=== PATIENT | female | born 1980 | race Caucasian/White ===

== ENCOUNTER 2018-12-29 21:18 | Emergency (ER) | payer MEDICAID ==
[2018-12-29 23:53] LABS: ABSOLUTE BASOPHILS # (AUTO) 0.1 10^3/uL (0.0-0.2); ABSOLUTE EOSINOPHILS # (AUTO) 0.1 10^3/uL (0.0-0.6); ABSOLUTE LYMPHOCYTES (AUTO) 2.2 10^3/uL (0.5-4.7); ABSOLUTE MONOCYTES (AUTO) 0.6 10^3/uL (0.1-1.4); ABSOLUTE NEUT (AUTO) 4.3 10^3/uL (1.7-8.2); EOSINOPHILS % (AUTO) 1.3 % (0-6); HEMATOCRIT 40.2 % (36.0-47.0); HEMOGLOBIN 13.5 g/dL (12.0-15.5); LYMPHOCYTES % (AUTO) 30.5 % (13-45); MEAN CORPUSCULAR HEMOGLOBIN 27.9 pg (27.0-33.4); MEAN CORPUSCULAR HGB CONC 33.6 g/dL (32.0-36.0); MEAN CORPUSCULAR VOLUME 83 fl (80-97); MONOCYTES % (AUTO) 7.8 % (3-13); PLATELET COUNT 190 10^3/uL (150-450); RED BLOOD COUNT 4.85 10^6/uL (3.72-5.28); RED CELL DISTRIBUTION WIDTH 13.5 % (11.5-14.0); SEGMENTED NEUTROPHILS % (AUTO) 59.4 % (42-78); TOTAL CELLS COUNTED % (AUTO) 100 %; WHITE BLOOD COUNT 7.2 10^3/uL (4.0-10.5)
[2018-12-30] LABS: APPEARANCE,URINE CLOUDY; BILIRUBIN,URINE NEGATIVE (NEGATIVE); COLOR,URINE RED; GLUCOSE, URINE >=500 mg/dL (NEGATIVE); KETONES,URINE NEGATIVE (NEGATIVE); LEUKOCYTE ESTERASE,URINE NEGATIVE (NEGATIVE); NITRITE,URINE NEGATIVE (NEGATIVE); PROTEIN,URINE 30 mg/dL (NEGATIVE); URINE SPECIFIC GRAVITY 1.033; UROBILINOGEN,URINE NEGATIVE mg/dL (<2.0)
[2018-12-30 00:08] LABS: ALANINE AMINOTRANSFERASE 34 U/L (9-52); ALBUMIN 4.5 g/dL (3.5-5.0); ALKALINE PHOSPHATASE 104 U/L (38-126); ANION GAP 13 (5-19); ASPARTATE AMINO TRANSFERASE 19 U/L (14-36); BILIRUBIN,DIRECT 0.2 mg/dL (0.0-0.4); BILIRUBIN,TOTAL 0.5 mg/dL (0.2-1.3); BLOOD UREA NITROGEN 18 mg/dL (7-20); CALCIUM 9.6 mg/dL (8.4-10.2); CARBON DIOXIDE 23 mmol/L (22-30); CHLORIDE 101 mmol/L (98-107); GLUCOSE 383 mg/dL (75-110); POTASSIUM 4.1 mmol/L (3.6-5.0); SODIUM 137.1 mmol/L (137-145); TOTAL PROTEIN 7.6 g/dL (6.3-8.2)
[2018-12-30] MEDS ORDERED: NORMAL SALINE 1000 ML 1,000 ML IV ONE (00:56)
--- NOTE | 2018-12-30 00:59 | ER Document Report ---
ED General - General Chief Complaint: Vaginal Bleeding Stated Complaint: VAGINAL BLEEDING,CRAMPING Time Seen by Provider: 12/30/18 00:50 Primary Care Provider: SHOAIB PINA MD [ACTIVE STAFF] - Follow up in 3-5 days Notes: Patient is a pleasant 38-year-old female presents with complaint of heavy vaginal bleeding. Patient was diagnosed with a pulmonary embolism in August. She was placed on Xarelto. She says every day since starting the Xarelto she bleeds. She said today has been heavier than normal. She says that she is been passing some clots. She has not had an ultrasound of her uterus. She has no history of fibroids that she is aware of. She has not been rechecked to see if the PE is gone. She said they want to keep her on Xarelto for 6 months due to the PE. She has now been on it for close to 5 months. No fevers. No other complaints at this time. TRAVEL OUTSIDE OF THE [place] IN LAST 30 DAYS: No Past Medical History - Social History Smoking Status: Never Smoker Frequency of alcohol use: None Drug Abuse: None Family History: Reviewed & Not Pertinent Patient has suicidal ideation: No Patient has homicidal ideation: No Endocrine Medical History: Reports: Hx Diabetes Mellitus Type 2 Renal/ Medical History: Denies: Hx Peritoneal Dialysis Past Surgical History: Reports: Hx Tonsillectomy, Hx Tubal Ligation Review of Systems - Review of Systems Notes: My Normal Review Basic REVIEW OF SYSTEMS: CONSTITUTIONAL : Denies fever, chills, or sweats. Denies recent illness. EENT: Denies eye, ear, throat, or mouth pain or symptoms. Denies nasal or sinus congestion. CARDIOVASCULAR: Denies chest pain. RESPIRATORY: Denies cough, cold, or chest congestion. Denies shortness of breath, difficulty breathing, or wheezing. GASTROINTESTINAL: Denies abdominal pain. Denies nausea, vomiting, or diarrhea. GENITOURINARY: Denies difficulty urinating, painful urination, burning, frequency, or blood in urine. FEMALE GENITOURINARY: Heavy vaginal bleeding MUSCULOSKELETAL: Denies neck or back pain or joint pain or swelling. SKIN: Denies rash or skin lesions. HEMATOLOGIC : On Xarelto NEUROLOGICAL: Denies altered mental status or loss of consciousness. ALL OTHER SYSTEMS REVIEWED AND NEGATIVE. Physical Exam - Vital signs Vitals: Temp Pulse Resp BP Pulse Ox 98.2 F 110 H 20 128/69 H 98 12/29/18 21:28 12/29/18 21:28 12/29/18 21:28 12/29/18 21:28 12/29/18 21:28 - Notes Notes: General Appearance: Well nourished, alert, cooperative, no acute distress, no obvious discomfort. Well-appearing. Vitals: reviewed, See vital signs table. Head: no swelling or tenderness to the head Eyes: PERRL, EOMI, Conjuctiva clear Mouth: No decreasd moisture Lungs: No wheezing, No rales, No rhonci, No accessory muscle use, good air exchange bilaterally. Heart: Normal rate, Regular rythm, No murmur, no rub Abdomen: Normal BS, soft, No rigidity, No abdominal tenderness, No guarding, no rebound Genital: Pelvic exam performed with female nurse scoreboard operator Tran Tanner at bedside. Normal external genitalia. Some blood in vaginal vault. No clots. No abnormal appearing intravaginal lesions. Extremities: good pulses in all extremities, no swelling or tenderness in the extremities, no edema. Skin: warm, dry, appropriate color, no rash Neuro: speech clear, oriented x 3, normal affect, responds appropriately to questions. Course - Re-evaluation Re-evalutation: 12/30/18 04:[address] scan shows no evidence of PE. I feel it is safe to hold her Xarelto for at least 5 days in hopes that this will help slow down her vaginal bleeding. Patient is agreeable with this. Informed her that she should still follow-up with her doctor in 5 days to see if he wants to restart taking it again. I encouraged her return to ER immediately if she has worsening bleeding, lightheadedness, dizziness, difficulty breathing, chest pain, or she feels unwell. I will refer her to gynecology for reevaluation and for further options and management of her vaginal bleeding. Patient agrees with plan and will be discharged home. Dictation of this chart was performed using voice recognition software; therefore, there may be some unintended grammatical errors. - Vital Signs Vital signs: Temp Pulse Resp BP Pulse Ox 98.6 F 98 15 111/61 100 12/30/18 03:04 12/30/18 03:04 12/30/18 03:04 12/30/18 03:04 12/30/18 03:04 - Laboratory Result Diagrams: 12/30/18 02:10 12/29/18 23:27 Laboratory results interpreted by me: 12/29/18 12/29/18 23:27 23:27 Glucose 383 H Urine Protein 30 H Urine Glucose (UA) >=500 H Urine Blood LARGE H Discharge - Discharge Clinical Impression: Episode of heavy vaginal bleeding Condition: Good Disposition: HOME, SELF-CARE Additional Instructions: Your CT scan of your lungs showed that there is no longer a visible clot in your lungs. We therefore we will have you hold your Xarelto for the next 5 days to hopefully allow for your vaginal bleeding to stop. Please follow-up with your doctor in 5 days for reevaluation and to discuss whether or not you can continue taking the Xarelto after holding it for 5 days. Please make an appointment to follow-up with the pouncer machine. The pouncer machine recruitment consultant is Dr. Pina. Please call his office to make a close follow-up appointment. Please return to the ER immediately if you have worsening bleeding, lightheadedness, difficulty breathing, chest pain, or if you feel unwell in any way. Forms: Return to Work Referrals: SHOAIB PINA MD [ACTIVE STAFF] - Follow up in 3-5 days
[2018-12-30 02:27] LABS: ABSOLUTE EOSINOPHILS # (AUTO) 0.1 10^3/uL (0.0-0.6); ABSOLUTE MONOCYTES (AUTO) 0.6 10^3/uL (0.1-1.4); ABSOLUTE NEUT (AUTO) 3.8 10^3/uL (1.7-8.2); BASOPHILS % (AUTO) 0.6 % (0-2); EOSINOPHILS % (AUTO) 1.7 % (0-6); HEMATOCRIT 37.4 % (36.0-47.0); HEMOGLOBIN 12.7 g/dL (12.0-15.5); LYMPHOCYTES % (AUTO) 30.9 % (13-45); MEAN CORPUSCULAR HGB CONC 34.1 g/dL (32.0-36.0); MEAN CORPUSCULAR VOLUME 82 fl (80-97); MONOCYTES % (AUTO) 8.9 % (3-13); PLATELET COUNT 170 10^3/uL (150-450); RED BLOOD COUNT 4.55 10^6/uL (3.72-5.28); RED CELL DISTRIBUTION WIDTH 13.2 % (11.5-14.0); SEGMENTED NEUTROPHILS % (AUTO) 57.9 % (42-78); TOTAL CELLS COUNTED % (AUTO) 100 %; WHITE BLOOD COUNT 6.5 10^3/uL (4.0-10.5)
[2018-12-30 03:10] VITALS: BP 111/61
--- NOTE | 2018-12-30 03:15 | RADIOLOGY REPORT (SQ) ---
EXAM DESCRIPTION: CT CHEST ANGIOGRAPHY WITHOUT THEN WITH IV CONTRAST COMPLETED DATE/TME: 12/30/2018 00:56 CLINICAL HISTORY: 38 years, Female, hx of PE COMPARISON: None. TECHNIQUE: Axial images through the chest were performed after the administration of intravenous contrast using a pulmonary embolus protocol. MIPS were performed. This exam was performed according to our departmental dose-optimization program which includes use of Automated Exposure Control, adjustment of the mA and/or kV according to patient size and/or use of iterative reconstruction technique. FINDINGS: No pulmonary embolus is identified. Normal caliber aorta without dissection. No pericardial effusion. No pleural effusion. No focal lung consolidation. No pneumothorax. Patent central airway. Soft tissues are unremarkable. No acute osseous findings. No acute abnormality within the visualized upper abdomen. IMPRESSION: No pulmonary embolus.
--- NOTE | 2018-12-30 04:28 | RADIOLOGY REPORT (SQ) ---
EXAM DESCRIPTION: US TRANSVAGINAL COMPLETED DATE/TME: 12/30/2018 00:56 CLINICAL HISTORY: 38 years Female, vaginal bleeding Comparison: None. Technique: Transvaginal. LIMITATIONS: Body habitus. FINDINGS: 10-cm partially obscured uterus, 1.6-cm endometrial stripe thickness, 3.5-cm right ovary, and nonvisualized left ovary appear otherwise unremarkable in size, shape, echotexture, and vascularity. No free fluid. IMPRESSION: No acute findings.. Left ovary is not visualized. Limitation.
== END 2018-12-30 04:50 | disposition home or self-care (01) ==
LOC: ER 21:18
DX: N93.9 Abnormal uterine and vaginal bleeding, unspecified (principal); Z86.711 Personal history of pulmonary embolism; Z79.01 Long term (current) use of anticoagulants; E11.9 Type 2 diabetes mellitus without complications
CPT/HCPCS: 99284; 96360; 96361; 36415; 84703; 85025; 80053; 81001; 76830; 93976; 71275; J7030